=== PATIENT | female | born 1995 | race Caucasian/White ===

== ENCOUNTER 2024-02-03 05:54 | Inpatient (IN) | payer BC ==
[2024-02-03] MEDS ORDERED: HYDROcodone/Acetaminophen 5/325 mg Tablet PO PRN ×3 (07:06→17:43)
[2024-02-03] MEDS ORDERED: fentaNYL 50 mcg/mL 1 mL Vial SLOW IVP PRN (07:06)
[2024-02-03] MEDS ORDERED: Ibuprofen 800 MG TAB PO PRN (07:06)
[2024-02-03] MEDS ORDERED: hydrALAZINE 20 MG/ML VIAL SLOW IVP PRN ×2 (07:06→17:43)
[2024-02-03] MEDS ORDERED: Ondansetron PF 4 MG/2 ML Vial IVP PRN ×2 (07:06→17:43)
[2024-02-03] MEDS ORDERED: Lidocaine 1% (PF) 30 ML VIAL SC PRN (07:06)
[2024-02-03] MEDS ORDERED: Promethazine HCl 25 MG/ML VIAL IM PRN ×2 (07:06→17:43)
[2024-02-03] MEDS ORDERED: Oxytocin 30 units/NS 500 ML 500 ML IV SCH (07:06)
[2024-02-03] MEDS ORDERED: Methylergonovine 0.2 MG/ML VIAL IM PRN (07:06)
[2024-02-03] MEDS ORDERED: Diphenoxylate HCl/Atropine Tablet PO PRN (07:06)
[2024-02-03] MEDS ORDERED: Acetaminophen 500 MG TAB PO PRN (07:06)
[2024-02-03] MEDS ORDERED: Misoprostol 200 MCG TAB PR PRN (07:06)
[2024-02-03] MEDS ORDERED: Carboprost 250 MCG/ML AMP IM PRN (07:06)
[2024-02-03 07:18] VITALS: BMI 26.9
[2024-02-03] MEDS: Lactated Ringer's 1,000 ML IV SCH (07:25)
[2024-02-03] MEDS: Penicillin G Potassium 5 MILL.UNITS in Sodium Chloride 0.9% 100 ML IVPB SCH (07:29)
[2024-02-03] MEDS: Oxytocin 30 units/NS 500 ML 500 ML IV SCH (07:45)
[2024-02-03 08:03] LABS: Hematocrit 38.2 % (34.9-44.5); Hemoglobin 13.6 g/dL (12.0-15.5); Mean Corpuscular HGB CONC 35.6 g/dL (32.0-36.0); Mean Corpuscular Hemoglobin 32.9 pg (27.0-33.0); Mean Corpuscular Volume 92.5 fl (81.6-98.3); Mean Platelet Volume 10.9 fl (7.4-10.4); Platelet Count 157 10x3/uL (150-450); RBC Distribution Width 13.2 % (11.5-14.5); Red Blood Cell (RBC) Count 4.13 10x6/uL (3.90-5.03); White Blood Cell (WBC) Count 8.6 10x3/uL (3.5-10.5)
[2024-02-03 08:28] LABS: HBsAg Index 0.23 S/CO (0-0.99); Hep B Surf Ag - L&D Non-Reactive S/CO (NonReactive)
[2024-02-03 08:29] LABS: Syphilis Antibody Nonreactive (Nonreactive); Syphilis Antibody Index 0.02 S/CO (<1.00 Non-Reactive)
[2024-02-03] MEDS: Penicillin G 2.5 MILL.units 2.5 MILL.UNITS in Premix 1 BAG IVPB SCH (11:31)
[2024-02-03] MEDS: fentaNYL/Ropivacaine Epidural 100 ML ONE (12:34)
[2024-02-03] MEDS ORDERED: Boostrix 0.5 ML (Tdap) VIAL (>/=7 yrs of age) IM ONE (17:43)
[2024-02-03] MEDS ORDERED: Milk Of Magnesia 30 ML UDCUP PO PRN (17:43)
[2024-02-03] MEDS ORDERED: diphenhydrAMINE 25 MG CAP PO PRN (17:43)
[2024-02-03] MEDS ORDERED: Bisacodyl 10 MG SUPP PR PRN (17:43)
[2024-02-03] MEDS ORDERED: Preparation H Ointment 28 GM TUBE PR PRN (17:43)
[2024-02-03] MEDS ORDERED: Lanolin Ointment 7 GM TUBE TOP PRN (17:43)
[2024-02-03] MEDS ORDERED: Benzocaine-Menthol 82.5 ML CAN TOP PRN (17:43)
[2024-02-03] MEDS: Phenylephrine 40 MG/NS 250 ML 250 ML ONE ×2 (17:47→17:48)
[2024-02-03] MEDS: Penicillin G Potassium 5 MILL.UNITS VIAL ONE (17:47)
[2024-02-03] MEDS: Oxytocin 30 units/NS 500 ML 500 ML ONE (17:47)
[2024-02-03] MEDS: Dexamethasone 4 mg/ml Vial ONE (17:48)
[2024-02-03] MEDS: ePHEDrine Sulfate 50 MG/10 ML VIAL ONE (17:48)
[2024-02-03] MEDS: Lidocaine 1% (PF) 30 ML VIAL ONE (17:48)
[2024-02-03] MEDS: Dexmedetomidine 200 MCG/2 ML VIAL ONE (17:48)
[2024-02-03] MEDS: Oxytocin 10 UNITS/ML VIAL ONE ×2 (17:48)
[2024-02-03] MEDS: Chloroprocaine 3% PF 20 ML VIAL ONE (17:48)
[2024-02-03] MEDS: Ondansetron PF 4 MG/2 ML Vial ONE (17:49)
[2024-02-03] MEDS: Ferrous Sulfate 325 MG TAB PO SCH (20:39)
[2024-02-03] MEDS: Ibuprofen 800 MG TAB PO SCH (21:37)
[2024-02-03] MEDS: Docusate 100 MG CAP PO SCH (21:37)
[2024-02-04] MEDS: Ferrous Sulfate 325 MG TAB PO SCH (07:21)
[2024-02-04] MEDS: Prenatal Vitamin 1 TAB PO SCH (10:01)
[2024-02-04 16:37] VITALS: BP 102/59; TEMP 98.2
[2024-02-04] MEDS ORDERED: Bupivacaine 0.25% HCL 30 ML VIAL ONE (19:48)
== END 2024-02-04 20:00 | disposition home or self-care (01) | DRG 807 ==
LOC: CSHLD 05:54 → CSHPED 17:42
PROVIDERS: ADMIT Student in an Organized Health Care Education/Training Program; ATTEND Student in an Organized Health Care Education/Training Program
PROC: 10E0XZZ Delivery of Products of Conception, External Approach (ICD-10-PCS; principal; 2024-02-03)
PROC: 0HQ9XZZ Repair Perineum Skin, External Approach (ICD-10-PCS; 2024-02-03)
PROC: 3E033XZ Introduction of Vasopressor into Peripheral Vein, Percutaneous Approach (ICD-10-PCS; 2024-02-03)
PROC: 3E033VJ Introduction of Other Hormone into Peripheral Vein, Percutaneous Approach (ICD-10-PCS; 2024-02-03)
DX: O99.824 Streptococcus B carrier state complicating childbirth (principal); Z37.0 Single live birth; O76 Abnormality in fetal heart rate and rhythm complicating labor and delivery; O69.81X0 Labor and delivery complicated by cord around neck, without compression, not applicable or unspecified; Z3A.39 39 weeks gestation of pregnancy; O70.0 First degree perineal laceration during delivery
CPT/HCPCS: 51702; 85027; 86780; 86850; 86900; 86901; 87340; J0665; J1100; J2001; J2401; J2405; J2540; J2590; J3490; J7120